=== PATIENT | female | born 1980 | race Caucasian/White ===

== ENCOUNTER → 2023-08-23 19:00 | Outpatient (REF) | payer OTHER, SELFPAY | LOC: MRI 3T 19:00 | PROVIDERS: ATTENDING PHYSICIAN Nurse Practitioner Adult Health; FAMILY PHYSICIAN Emergency Medicine | DX: I77.3 Arterial fibromuscular dysplasia (principal) | CPT/HCPCS: 70544; 70549; A9585 ==

== ENCOUNTER → 2023-09-11 07:08 | Outpatient (REF) | payer OTHER, SELFPAY | LOC: HWRAD 07:08 | PROVIDERS: ATTENDING PHYSICIAN Emergency Medicine | DX: E04.1 Nontoxic single thyroid nodule (principal) | CPT/HCPCS: 76536 ==

== ENCOUNTER → 2023-09-13 07:14 | Outpatient (REF) | payer OTHER, SELFPAY | LOC: DHCBC HW 07:14 | PROVIDERS: ATTENDING PHYSICIAN Internal Medicine Cardiovascular Disease; FAMILY PHYSICIAN Emergency Medicine | DX: R06.00 Dyspnea, unspecified (principal) | CPT/HCPCS: 93306 ==

== ENCOUNTER → 2023-09-26 10:01 | Outpatient (REF) | payer OTHER, SELFPAY | LOC: WDC 10:01 | PROVIDERS: ATTENDING PHYSICIAN Emergency Medicine | DX: N63.32 Unspecified lump in axillary tail of the left breast (principal); R22.32 Localized swelling, mass and lump, left upper limb | CPT/HCPCS: 76642; 77062; 77066 ==

== ENCOUNTER → 2023-10-18 09:12 | Outpatient (REF) | payer OTHER, SELFPAY ==
[2023-10-18 09:48] VITALS: BP 125/79; BP_SYST 68
== END ==
LOC: RADI 09:12
PROVIDERS: ATTENDING PHYSICIAN Emergency Medicine
DX: E04.1 Nontoxic single thyroid nodule (principal)
CPT/HCPCS: 88173; 10005

== ENCOUNTER 2024-05-06 06:09 | Day surgery (SDC) | payer OTHER, SELFPAY ==
[2024-05-06 06:10] VITALS: BMI 25.1
[2024-05-06 06:15] VITALS: BP 108/67
[2024-05-06 06:25] VITALS: BMI 25.1
[2024-05-06] MEDS: TYLENOL 1000 MG PO (06:35)
[2024-05-06] MEDS: NORMOSOL-R/PLASMALYTE-A 1000 IV (06:36)
--- NOTE | 2024-05-06 08:05 | W.IMMPOSTOP ---
Surgical Immed Post Op Note
-
Primary Surgeon: Desi
Assisting: Eusebia PERSON
Pre-op Diagnosis: Soft tissue mass, left axilla
Post-op Diagnosis: Same
Procedure Performed: Excision of soft tissue mass of left axilla
Anesthesia Type: MAC local
Specimen / Cultures: Soft tissue mass, left axilla
Estimated Blood Loss: 5cc
Complications: None immediate
Operative Findings: 3.5x2cm fatty mass with some fibrous septae and some skin attachments
--- NOTE | 2024-05-06 08:06 | OR.RPT ---
Operative Report
Operative Report
Primary Surgeon: Desi
Assisting: Eusebia PERSON
Pre-op Diagnosis: Soft tissue mass, left axilla
Post-op Diagnosis: Same
Procedure Performed: Excision of soft tissue mass of left axilla
Anesthesia Type: MAC local
Specimen / Cultures: Soft tissue mass, left axilla
Estimated Blood Loss: 5cc
Complications: None immediate
Operative Findings: 3.5 x 2cm fatty mass with some fibrous septae and some skin attachments
Date of surgery: 05/06/24
Procedure: After informed consent was obtained, the patient was marked in the preop area while awake and then brought to the operating room. The pt was placed in the supine position and was given IV sedation by the Anesthesia team. The marked area
was infiltrated with 1% lidocaine with epinephrine. An incision was made with a #15 blade and carried down to the subcutaneous plane with electrocautery. A soft rubbery fatty mass with some fibrous septae was identified. It was freed from
surrounding attachments with electrocautery and excised in 3 segments that were passed off the table as specimen. The wound was then irrigated with sterile saline and hemostasis was achieved using electrocautery. The wound was closed in layers with
3-0 vicryl deep dermal sutures and a running 4-0 monocryl subcuticular suture. Topical skin glue was applied. The patient tolerated the procedure well and was transferred to recovery room in stable condition.
[2024-05-06 08:18] VITALS: BP 102/68
[2024-05-06 08:30] VITALS: BP 102/61
[2024-05-06 08:45] VITALS: BP 102/64
[2024-05-06 08:59] VITALS: BP 108/69
== END 2024-05-06 09:05 | disposition home or self-care (01) ==
LOC: SDS 06:09
PROVIDERS: ATTENDING PHYSICIAN Surgery
DX: R22.2 Localized swelling, mass and lump, trunk (principal)
CPT/HCPCS: 21552; 88304; 88341; 88342

== ENCOUNTER → 2024-09-06 07:57 | Outpatient (REF) | payer OTHER, SELFPAY | LOC: RAD 07:57 | PROVIDERS: ATTENDING PHYSICIAN Surgery Vascular Surgery; FAMILY PHYSICIAN Emergency Medicine | DX: I77.3 Arterial fibromuscular dysplasia (principal) | CPT/HCPCS: 93975 ==

== ENCOUNTER → 2024-11-18 12:59 | Outpatient (REF) | payer OTHER, SELFPAY | LOC: HWRAD 12:59 | PROVIDERS: ATTENDING PHYSICIAN Internal Medicine Endocrinology, Diabetes & Metabolism; FAMILY PHYSICIAN Emergency Medicine | DX: E04.1 Nontoxic single thyroid nodule (principal) | CPT/HCPCS: 76536 ==

== ENCOUNTER 2024-12-03 10:34 | Emergency (ER) | payer OTHER, SELFPAY ==
[2024-12-03 10:59] VITALS: BP 127/86
[2024-12-03 11:32] LABS: % Basophils 0.8 % (0-2); % Eosinophils 1.1 % (0-6); % Immature Granulocytes 0.3 % (0-0.5); % Lymphocytes 31.4 % (20.5-51.1); % Monocytes 8.9 % (1.7-9.3); % Neutrophils 57.5 % (42.2-75.2); Absolute Basophils 0.1 10^3/uL (0-0.2); Absolute Eosinophils 0.1 10^3/uL (0-0.7); Absolute Monocytes 0.6 10^3/uL (0.1-0.6); Absolute Neutrophils 3.6 10^3/uL (1.4-6.5); Hematocrit 25.2 % (37.0-47.0); Hemoglobin 7.8 g/dL (12.0-16.0); Mean Corpuscular Hgb 23.8 pg (27.0-31.0); Mean Corpuscular Volume 76.8 fL (81.0-99.0); Mean Platelet Volume 9.1 fL (7.4-10.4); Nucleated Red Blood Cells % 0 %; Platelet Count 461 10^3/uL (130-400); Red Blood Cell Count 3.28 10^6/uL (4.20-5.40); Red Cell Dist. Width 15.4 % (11.5-14.5); White Blood Cell Count 6.3 10^3/uL (4.8-10.8)
[2024-12-03 11:41] LABS: HCG, Serum Qualitative Screen Negative
[2024-12-03 11:46] LABS: ALT (SGPT) 16 U/L (0-35); AST (SGOT) 19 U/L (14-36); Albumin 4.1 g/dl (3.5-5.0); Alkaline Phosphatase 52 U/L (38-126); Blood Urea Nitrogen 10 mg/dl (7-17); Calcium 9.6 mg/dl (8.4-10.2); Carbon Dioxide 23 mmol/L (22-30); Chloride 112 mmol/L (98-107); Glucose 95 mg/dl (70-99); Potassium 4.7 mmol/L (3.5-5.1); Sodium 139 mmol/L (135-145); Total Bilirubin 0.4 mg/dl (0.2-1.3); Total Protein 6.6 g/dl (6.3-8.2); eGFR > 60.00
[2024-12-03 11:56] LABS: Troponin I < 0.012 ng/ml
--- NOTE | 2024-12-03 12:28 | ED.GENMED ---
History of Present Illness
General
Chief Complaint: Chest Pain
Source: patient
Exam Limitations: none
Time Seen by Provider: 12/03/24 11:32
Nursing documentation reviewed up to this point in time: agreed with
History of Present Illness
History of Present Illness:
Patient is a 44-year-old female with history of iron deficiency anemia presenting to the emergency department for evaluation of chest pain. Patient reports that tightness in her chest woke her from sleep this morning around 1 AM. Tightness has
been constant since. She denies any radiation into her back or clear exertional/pleuritic component. Patient does report recent shortness of breath and felt very lightheaded/dizzy when dropping her child off at school today. She also had some
tingling in her right fingers earlier this morning which has resolved.
Patient states that she is currently being worked up for iron deficiency anemia. She reports irregular and heavy vaginal bleeding over the past 6 months. She denies any abdominal pain hematochezia, or melena. No hematuria. Patient has been by
primary care and hematology. She was recently referred to GI and [facility]. She is an appointment [facility] tomorrow. Her most recent hemoglobin was 9.6 on 11/09.
Patient states her last menstrual period was 11/09 - 11/30.
Patient reports negative fecal occult blood testing a few weeks ago.
Past History
Past History
ED Past Medical History: GERD and Other (migraines, glaucoma)
ED Past Surgical History:
Social History
Tobacco: Non-smoker
Alcohol: None
Drug: None
Personal:
Living: with family
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
Family History
Family History: Sudden (Grandfather)
Review of Systems
Review of Systems
Allergies reviewed?: Yes
All Other Systems: ROS reviewed and negative except as documented in HPI and ROS
Phy Exam
Physical Exam
Physical Exam:
Vitals: Patient's vital signs are stable. Afebrile
General: Patient is well appearing, no acute distress. Nontoxic appearing
Skin: Warm and dry, no rashes or lesions
Head: Normocephalic, atraumatic
Eyes: Sclera nonicteric. EOMs intact. No nystagmus.
Throat: Protecting airway
Neck: Normal ROM, no cervical spine tenderness, no meningismus
Cardiac: Regular rate and rhythm, no murmurs. No reproducible chest wall tenderness.
Pulm: Normal respiratory effort, no wheezes, rales, rhonchi heard on exam
.
Abdomen: Abdomen soft nontender.
Rectal: Very minimal light brown stool in vault. Guaiac negative.
Extremities: No evidence of cyanosis or edema. Palpable DP pulses bilateral
Neuro: AAOx3. Grossly intact.
Psychiatric: Normal affect.
Scores
Heart Score for Chest Pain Patients
STEMI patient?: Not applicable
Course
Orders/Labs/Results
Orders:
Orders
12/03/24 10:35
Electrocardiogram (*1) Urgent
Reason for Study: Chest Pain
EKG- Treatment ONCE
12/03/24 11:04
Test Result ONCE
12/03/24 11:11
Type And Crossmatch [Type+Screen] Urgent
Complete Blood Count/With Diff Urgent
Comprehensive Metabolic Panel Urgent
HCG, Serum Qualitative Screen Urgent
Comment: Notify provider if positive test present
Troponin I Urgent
12/03/24 12:05
US Pelvis W Transvag Combined Urgent
Reason For Exam: Vaginal bleeding, anemia
12/03/24 12:55
D-Dimer Urgent
12/03/24 13:18
0.9% Sodium Chloride 1000 ml [Nss] 1,000 ml IV BOLUS
12/03/24 14:18
Electrocardiogram (*1) Urgent
Reason for Study: Chest Pain
EKG- Treatment ONCE
12/03/24 14:35
Troponin I Urgent
12/03/24 15:09
CR Chest - 2 Views Urgent
Comment:
Reason For Exam: CP, SOB
12/03/24 15:30
Blood Bank Products [* Blood Bank Products] Urgent
Blood Bank Products: *Packed RBC Leuko(PRBC's)
Quantity: 1
Transfuse Today: Yes
Reason: Anemia
Abnormal Lab Results
12/03/24
11:11
RBC 3.28 L 10^6/uL
(4.20-5.40)
Hgb 7.8 L g/dL
(12.0-16.0)
Hct 25.2 L %
(37.0-47.0)
MCV 76.8 L fL
(81.0-99.0)
MCH 23.8 L pg
(27.0-31.0)
MCHC 31.0 L g/dL
(33.0-37.0)
RDW 15.4 H %
(11.5-14.5)
Plt Count 461 H 10^3/uL
(130-400)
Chloride 112 H mmol/L
(98-107)
Crossmatch IS Only See Detail
12/03/24 11:11
12/03/24 11:11
Vital Signs
Initial and Last Documented VS:
Initial Vital Signs
Temp Pulse Resp BP Pulse Ox
98.3 F 72 16 127/86 100
12/03/24 10:59 12/03/24 10:59 12/03/24 10:59 12/03/24 10:59 12/03/24 10:59
Last Documented Vital Signs
Temp Pulse Resp BP Pulse Ox
98.0 F 69 16 103/64 99
12/03/24 19:11 12/03/24 19:11 12/03/24 19:11 12/03/24 19:11 12/03/24 19:11
MDM/Problems Addressed
Differential Diagnosis Includes:
Not limited to: Muscular strain, GERD, symptomatic anemia, pulmonary embolism, acute coronary syndrome, etc.
MDM/Problems Addressed:
44-year-old female with recent history iron deficiency anemia presenting with recent worsening exertional dyspnea, lightheadedness, now with new chest tightness this morning. Patient with abnormal and heavy periods for the past six months and
anemia. No current vaginal bleeding. She has followed with primary and hematology who referred her to [facility] Patient has appointment scheduled with [facility] tomorrow. Patient has stable vital signs on arrival. Physical exam as above. Labs sent off
in triage significant for an anemia with a hemoglobin of 7.8. Nn review of patient�s most recent outpatient lab work obtained in mid October � this is an approximately two point drop. Chemistry unremarkable. EKG without ischemic findings. Initial
troponin undetectable. Will send d-dimer, repeat troponin, chest x-ray. Given history of heavy periods and anemia � will obtain pelvic ultrasound.
Update: D-dimer negative. CXR w/o acute findings. Serial troponin undetectable x2. Low suspicion for acute cardiac process. The majority of patient symptoms, including exertion dyspnea and lightheadedness likely secondary to symptomatic anemia from
heavy menstrual bleeding. Rectal exam was performed with guaiac negative stool� not suspect G.I. bleeding. Pelvic ultrasound shows possible hemorrhagic cyst of right anexal region without other acute findings. Discussed with [facility], Dr. Andrews.
Patient remains hemodynamically stable without active vaginal bleeding today. Suspect acute on chronic anemia. Give patients presenting symptoms- will plan to transfuse one unit in ED and discharge with [facility] outpatient follow up. Blood consent
obtained from patient and signed into chart.
Update: Patient received one unit RBC in ED and tolerated well. She is hemodynamically stable. Will discharge home with outpatient [facility] f/u tomorrow. Close return precautions discussed.
Chronic conditions affecting care:
GERD, iron deficiency anemia
Acute Exacerbation and/or Progression of Chronic Illness:
Acute on chronic iron deficiency anemia
*Radiology
Radiology exam reviewed: preliminary read by ED provider (CXR reviewed by me - no acute abnormalities) and radiology read reviewed
*Pulse Oximetry
Patient hypoxic: no
*EKG
Interpreted by ED Provider?: Yes
EKG Intrepretation Date: 12/03/24
Interpretation: normal
Comparison EKG: no changes
Heart Rate: 67
Rate: normal
Rhythm: sinus
[place]: normal axis
Interval: normal QT interval
QRS Pattern: normal QRS
Ischemia: no ischemia
*White Metal Caster Interpretation
Rate: White Metal Caster- N/A
*Critical Care Note
Total Time (30-74mins, 75-104mins- exclusive of procedures): Not Applicable
Data Reviewed
Review of Other/Old Records Reveals: Labs (Outpatient lab work from 11/09/24 with hgb of 9.6)
Source: other (outpatient labwork)
Patient Management
Discussion with other providers: Dry Talc Racker (Case discussed with [facility])
ED Attending Note
-
Portions of this chart may have been created with voice recognition software.� Occasional wrong word or��sound alike� substitutions may have occurred due to the inherent limitations of voice recognition software.
Discharge Plan
Departure
Patient Disposition: Home (Routine Discharge)
Date of Disposition: 12/03/24
Time of Disposition: 19:24
Patient with high blood pressure during this ER visit?: Yes
Condition: Good
Covid-19: Not Applicable
Discharge Problem:
Anemia, Dyspnea, Chest pain
Instructions: Blood transfusion, Low iron in adults - Discharge instructions, Chest pain - Discharge instructions
Prescriptions:
No Action
multivitamin [Bgz-Fqilfh-Yyryi] 1 EACH tablet
1 ea PO DAILY
aspirin 81 mg Capsule
81 mg PO DAILY
Qulipta 10 mg Tablet
10 mg PO DAILY
Referrals:
Gretchen bOregon MD [Family Provider] - Follow up in 5-7 days
Manuel Andrews MD [Active] - Tomorrow
Activity Restrictions/Additional Instructions:
RETURN TO THE EMERGENCY DEPARTMENT ANY FEVER, CHILLS, RASH, CHEST PAIN OR SHORTNESS OF BREATH, LIGHTHEADEDNESS/DIZZINESS, PERSISTENT OR HEAVY VAGINAL BLEEDING, OR ANY OTHER CONCERNS
- As discussed�your hemoglobin was found to be 7.8 today. You did receive 1 unit of blood in the emergency department. I suspect some of your symptoms are likely due to symptomatic anemia. It is importantly follow-up tomorrow with [facility] for
further evaluation/management.
- You should schedule your iron infusion as directed by your video recorder mechanic.
- Stay well-hydrated. Get plenty of rest.
Monitor your symptoms closely and return to the emergency department with any acute worsening/new symptoms or any other concerns
Interventions
Interventions:
*Risk Screen - Suicide Last Done: 12/03/24 10:59
*General Assessment Last Done: 12/03/24 13:31
*Neglect/Abuse Screening Last Done: 12/03/24 10:59
*ED- Fall Risk Assessment Last Done: 12/03/24 13:31
*ED COVID-19 Vaccine History Last Done: 12/03/24 13:31
*Nursing Disposition Last Done: 12/03/24 19:41
ED- Cardiac Assessment Last Done: 12/03/24 13:28
Discharge Date and Time
Discharge Date/Time: 12/03/24 19:41
Print Language: CITIZEN OF [place]
[2024-12-03] MEDS: NSS 1000 IV (13:27)
[2024-12-03 13:28] VITALS: BP 126/74
[2024-12-03 14:10] LABS: D-Dimer < 0.27 ug/mlFEU (0.00-0.50)
[2024-12-03 14:32] VITALS: BP 110/70
[2024-12-03 15:12] LABS: Troponin I < 0.012 ng/ml
[2024-12-03 16:49] VITALS: BP 111/69
[2024-12-03 17:13] VITALS: BP 101/64
[2024-12-03 19:11] VITALS: BP 103/64
== END 2024-12-03 19:41 | disposition home or self-care (01) ==
LOC: EMR 10:34
PROVIDERS: Physician Assistant; Student in an Organized Health Care Education/Training Program; EMERGENCY PHYSICIAN Student in an Organized Health Care Education/Training Program; FAMILY PHYSICIAN Emergency Medicine
DX: D50.9 Iron deficiency anemia, unspecified (principal); R07.89 Other chest pain; R06.09 Other forms of dyspnea; K21.9 Gastro-esophageal reflux disease without esophagitis
CPT/HCPCS: 99284; 71046; 76830; 76856; 80053; 84484; 84703; 85025; 85379; 86850; 86900; 86901; 86920; 93005; P9016

== ENCOUNTER → 2024-12-11 14:53 | Outpatient (REF) | payer OTHER, SELFPAY ==
[2024-12-11 14:01] LABS: % Basophils 1.2 % (0-2); % Eosinophils 1.7 % (0-6); % Immature Granulocytes 0.2 % (0-0.5); % Lymphocytes 33.2 % (20.5-51.1); % Monocytes 9.1 % (1.7-9.3); % Neutrophils 54.6 % (42.2-75.2); Absolute Basophils 0.1 10^3/uL (0-0.2); Absolute Eosinophils 0.1 10^3/uL (0-0.7); Absolute Lymphocytes 2.2 10^3/uL (1.2-3.4); Absolute Monocytes 0.6 10^3/uL (0.1-0.6); Absolute Neutrophils 3.6 10^3/uL (1.4-6.5); Hematocrit 28.6 % (37.0-47.0); Hemoglobin 8.9 g/dL (12.0-16.0); Mean Corp Hgb Conc. 31.1 g/dL (33.0-37.0); Mean Corpuscular Hgb 25.1 pg (27.0-31.0); Mean Corpuscular Volume 80.8 fL (81.0-99.0); Platelet Count 407 10^3/uL (130-400); Red Blood Cell Count 3.54 10^6/uL (4.20-5.40); Red Cell Dist. Width 18.2 % (11.5-14.5); White Blood Cell Count 6.6 10^3/uL (4.8-10.8)
== END ==
LOC: OIDL 14:53
PROVIDERS: ATTENDING PHYSICIAN Internal Medicine Hematology & Oncology
DX: D50.9 Iron deficiency anemia, unspecified (principal)
CPT/HCPCS: 85025

== ENCOUNTER 2024-12-27 06:18 | Day surgery (SDC) | payer OTHER, SELFPAY ==
[2024-12-24 13:56] LABS: % Basophils 0.9 % (0-2); % Eosinophils 0.8 % (0-6); % Immature Granulocytes 0.3 % (0-0.5); % Lymphocytes 27.2 % (20.5-51.1); % Monocytes 6.1 % (1.7-9.3); % Neutrophils 64.7 % (42.2-75.2); Absolute Basophils 0.1 10^3/uL (0-0.2); Absolute Eosinophils 0.1 10^3/uL (0-0.7); Absolute Lymphocytes 2.1 10^3/uL (1.2-3.4); Absolute Monocytes 0.5 10^3/uL (0.1-0.6); Absolute Neutrophils 4.9 10^3/uL (1.4-6.5); Hematocrit 29.6 % (37.0-47.0); Hemoglobin 9.2 g/dL (12.0-16.0); Mean Corp Hgb Conc. 31.1 g/dL (33.0-37.0); Mean Platelet Volume 9.2 fL (7.4-10.4); Nucleated Red Blood Cells % 0 %; Platelet Count 481 10^3/uL (130-400); Red Blood Cell Count 3.29 10^6/uL (4.20-5.40); Red Cell Dist. Width 22.6 % (11.5-14.5); White Blood Cell Count 7.5 10^3/uL (4.8-10.8)
[2024-12-24 14:13] VITALS: BMI 20.8
[2024-12-24 14:37] LABS: Beta HCG Quantitative < 2.39 mIU/ml
[2024-12-24 14:44] LABS: Blood Urea Nitrogen 6 mg/dl (7-17); Calcium 9.2 mg/dl (8.4-10.2); Carbon Dioxide 22 mmol/L (22-30); Chloride 111 mmol/L (98-107); Estimated Creatinine Clearance 69 ml/min; Glucose 84 mg/dl (70-99); Potassium 4.3 mmol/L (3.5-5.1); Sodium 138 mmol/L (135-145); eGFR > 60.00
[2024-12-27] VITALS (9 sets, daily range): BP systolic 93–117; BP diastolic 50–68; BMI 20.8
[2024-12-27] MEDS: NEURONTIN 300 MG PO (07:56)
[2024-12-27] MEDS: TYLENOL 1000 MG PO (07:56)
[2024-12-27] MEDS: NORMOSOL-R/PLASMALYTE-A 1000 IV (07:57)
== END 2024-12-27 11:26 | disposition home or self-care (01) ==
LOC: SDS 06:18
PROVIDERS: ATTENDING PHYSICIAN Obstetrics & Gynecology; FAMILY PHYSICIAN Emergency Medicine
DX: N92.0 Excessive and frequent menstruation with regular cycle (principal); N84.0 Polyp of corpus uteri
CPT/HCPCS: 58558; 88305; 36415; 80048; 84702; 85025

== ENCOUNTER → 2025-01-21 12:25 | Outpatient (REF) | payer OTHER, SELFPAY | LOC: WDC 12:25 | PROVIDERS: ATTENDING PHYSICIAN Emergency Medicine | DX: Z12.31 Encounter for screening mammogram for malignant neoplasm of breast (principal) | CPT/HCPCS: 77063; 77067 ==

== ENCOUNTER 2025-01-30 06:27 | Day surgery (SDC) | payer OTHER, SELFPAY | END 2025-01-30 14:36 | disposition home or self-care (01) | LOC: GI 06:27 | PROVIDERS: ATTENDING PHYSICIAN Internal Medicine Gastroenterology | DX: D50.9 Iron deficiency anemia, unspecified (principal); K44.9 Diaphragmatic hernia without obstruction or gangrene; K31.89 Other diseases of stomach and duodenum | CPT/HCPCS: 43239; 88305; 88342 ==

== ENCOUNTER → 2025-03-07 15:00 | Outpatient (REF) | payer OTHER, SELFPAY | LOC: RAD 15:00 | PROVIDERS: ATTENDING PHYSICIAN Nurse Practitioner Family; FAMILY PHYSICIAN Emergency Medicine | DX: N83.291 Other ovarian cyst, right side (principal) | CPT/HCPCS: 76830; 76856 ==

== ENCOUNTER → 2025-05-07 18:47 | Outpatient (REF) | payer OTHER, SELFPAY | LOC: MRI 18:47 | PROVIDERS: ATTENDING PHYSICIAN Obstetrics & Gynecology; FAMILY PHYSICIAN Emergency Medicine | DX: R93.89 Abnormal findings on diagnostic imaging of other specified body structures (principal) | CPT/HCPCS: 72197; A9575 ==

== ENCOUNTER 2025-06-17 05:45 | Day surgery (SDC) | payer OTHER, SELFPAY ==
[2025-05-27 09:08] LABS: Hematocrit 41.6 % (37.0-47.0); Hemoglobin 13.9 g/dL (12.0-16.0); Mean Corp Hgb Conc. 33.4 g/dL (33.0-37.0); Mean Corpuscular Volume 92.9 fL (81.0-99.0); Nucleated Red Blood Cells % 0 %; Platelet Count 316 10^3/uL (130-400); Red Cell Dist. Width 13.1 % (11.5-14.5)
[2025-05-27 09:45] LABS: Blood Urea Nitrogen 13 mg/dl (7-17); Calcium 9.2 mg/dl (8.4-10.2); Carbon Dioxide 23 mmol/L (22-30); Chloride 107 mmol/L (98-107); Glucose 75 mg/dl (70-99); Potassium 4.6 mmol/L (3.5-5.1); Sodium 135 mmol/L (135-145); eGFR > 60.00
[2025-05-27 09:51] LABS: Beta HCG Quantitative < 2.39 mIU/ml
[2025-05-27 13:54] VITALS: BMI 21.2
[2025-06-17] VITALS (12 sets, daily range): BP systolic 104–123; BP diastolic 66–75; BMI 21.2
[2025-06-17] MEDS: NEURONTIN 300 MG PO (06:22)
[2025-06-17] MEDS: TYLENOL 1000 MG PO (06:23)
[2025-06-17] MEDS: EMEND 40 MG PO (06:48)
[2025-06-17] MEDS: NORMOSOL-R/PLASMALYTE-A 1000 IV (06:49)
--- NOTE | 2025-06-17 10:04 | W.IMMPOSTOP ---
Addendum entered and electronically signed by Tereza Butler DO 06/17/25 10:58:
ASST: NAYA Abreu
add to procedure: pelvic washings
specimen: pelvic washings
Original Note:
Surgical Immed Post Op Note
-
Primary Surgeon: Tereza Butler DO
Assisting Surgeon: same
Pre-op Diagnosis: Menorrhagia, irregular bleeding;recurrent right ovarian cyst
Post-op Diagnosis: same
Procedure Performed: Robotic assisted total laparoscopic hysterectomy bilateral salpingo-oopherectomy, lysis adhesions
Anesthesia Type: general ET Dr. Blake
Specimen / Cultures: uterus, cervix, bilateral fallopian tubes and ovaries
Estimated Blood Loss: 10ml
Urine output: 75 ml clear yellow
Complications: none
Operative Findings: Uterus approx 10 cm size, globular shaped, normal appearing tubes and ovaries. Right ovary with superficial clear vesicles on surface.
Right fallopian tube adhesions. No ovarian cysts. Adhesions in region of lower uterine segment/bladder.
Counts correct times 2.
Stable to recovery.
[2025-06-17] MEDS: DILAUDID 0.25 MG IV (10:53)
[2025-06-17] MEDS: ERYTHROMYCIN 0.5% OPHTHALMIC OINTMENT 1 APPLIC OPHTH (12:42)
[2025-06-17] MEDS: TYLENOL 650 MG PO (12:47)
== END 2025-06-17 15:10 | disposition home or self-care (01) ==
LOC: SDS 05:45
PROVIDERS: ATTENDING PHYSICIAN Obstetrics & Gynecology; FAMILY PHYSICIAN Nurse Practitioner Family
DX: N92.0 Excessive and frequent menstruation with regular cycle (principal); N93.9 Abnormal uterine and vaginal bleeding, unspecified; N83.12 Corpus luteum cyst of left ovary; N83.291 Other ovarian cyst, right side; N85.8 Other specified noninflammatory disorders of uterus
CPT/HCPCS: 58571; 80048; 84702; 85025; 86850; 86900; 86901; 88112; 88307

== ENCOUNTER 2025-06-18 19:01 | Emergency (ER) | payer OTHER, SELFPAY ==
[2025-06-18 19:15] VITALS: BP 130/85
[2025-06-18 19:23] VITALS: BP 130/73
[2025-06-18 19:38] VITALS: BMI 23.4
--- NOTE | 2025-06-18 19:54 | ED.GENMED ---
History of Present Illness
General
Chief Complaint: Post Operative Problem(s)
Source: patient and spouse
Time Seen by Provider: 06/18/25 19:39
History of Present Illness
History of Present Illness:
45-year-old female presents emergency room complaining of having some chest discomfort some shortness of breath and trouble swallowing that began early this afternoon. Patient had a hysterectomy formed yesterday but Dr. Butler. This was a robotic
assisted laparoscopic procedure. Patient felt well after the procedure and was discharged home. She felt as expected this morning with postoperative pain but none of the symptoms that are brought here to the emergency room. She had no difficulty
swallowing. She had no unusual sore throat or change of voice.
Past History
Past History
ED Past Medical History: GERD and Other (migraines, glaucoma)
ED Past Surgical History:
Social History
Tobacco: Non-smoker
Alcohol: None
Drug: None
Personal:
Living: with family
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
Family History
Family History: Sudden (Grandfather)
Phy Exam
Physical Exam
Physical Exam:
General: Awake, Alert, Oriented X3. No acute distress.
Vitals: unremarkable
Head: Atraumatic
Eyes: Pupils equal, EOMI
Throat: Airway intact, no exudates
Neck: Trachea midline, subcutaneous emphysema palpable bilaterally
Chest wall: Subcutaneous emphysema noted bilateral chest wall
Lungs: Crackles noted, breath sounds equal b/l
Heart: Regular rate, no murmurs
Neuro: Nonfocal
Skin: Warm, dry, no rash
Extremities: pulses equal b/l, no edema
Course
Orders/Labs/Results
Orders:
Orders
06/18/25 19:20
EKG [Electrocardiogram (*1)] Urgent
Reason for Study: Chest Pain
EKG- Treatment ONCE
06/18/25 19:37
CR Chest Portable - 1 View Urgent
Comment:
Reason For Exam: breathing problem
Reason Study Needs to be Portable: Unable to Transport
06/18/25 22:15
CR Chest - 2 Views Urgent
Comment:
Reason For Exam: sob, subcutaneous emphysema
Vital Signs
Initial and Last Documented VS:
Initial Vital Signs
Temp Pulse Resp BP Pulse Ox
99.1 F 111 22 130/85 98
06/18/25 19:15 06/18/25 19:15 06/18/25 19:15 06/18/25 19:15 06/18/25 19:15
Last Documented Vital Signs
Temp Pulse Resp BP Pulse Ox
99.1 F 63 14 103/66 98
06/18/25 19:15 06/18/25 22:15 06/18/25 22:15 06/18/25 23:17 06/18/25 23:45
MDM/Problems Addressed
Differential Diagnosis Includes:
Subcutaneous emphysema from pneumothorax, subcutaneous emphysema from abdominal insufflation, tracheal injury
MDM/Problems Addressed:
Patient presents with subcutaneous emphysema and neck face and chest. No pneumo on chest x-ray. Patient did not have any neck pain or hoarseness immediately following surgery. Given tracheal injury or other airway issue very unlikely to be the
source. Discussed with anesthesia and Dr. Butler. They agreed that this is very likely subcutaneous emphysema from insufflation for her laparoscopic procedure. This is a not uncommon. Patient observed for 3 hours. Repeat chest x-ray obtained
without any development of a pneumothorax. We ambulated patient and she did not have any shortness of breath. Through shared decision making we decided on discharge. Patient encouraged to return if she feels like things are getting worse or she
is not comfortable.
*Radiology
Radiology exam reviewed: radiology read reviewed
*Pulse Oximetry
SaO2: 98
Oxygen Mode of Delivery: Room air
Patient hypoxic: no
*EKG
Heart Rate: 91
Rate: normal
Rhythm: sinus
[place]: normal axis
Interval: normal interval
QRS Pattern: normal QRS
Ischemia: no ischemia
*Revenue Stamp Cutter Interpretation
Rate: normal
Interpretation: normal
Heart Rate: 91
Rhythm: sinus
*Critical Care Note
Total Time (30-74mins, 75-104mins- exclusive of procedures): Not Applicable
ED Attending Note
-
Portions of this chart may have been created with voice recognition software.� Occasional wrong word or��sound alike� substitutions may have occurred due to the inherent limitations of voice recognition software.
Discharge Plan
Departure
Patient Disposition: Home (Routine Discharge)
Date of Disposition: 06/18/25
Time of Disposition: 23:47
Patient with high blood pressure during this ER visit?: No
Condition: Good
Discharge Problem:
Emphysema (subcutaneous) (surgical) resulting from a procedure
Instructions: Postoperative Pain (DC)
Prescriptions:
No Action
aspirin 81 mg Capsule
81 mg PO DAILY
bupropion HCl [Wellbutrin XL] 150 mg Tablet Extended Release 24 Hr
150 mg PO DAILY
Qulipta 60 mg Tablet
60 mg PO DAILY
prochlorperazine
10 mg PO BID PRN (Reason: migraine)
acetaminophen [Tylenol] 325 mg Tablet
650 mg PO Q4H PRN (Reason: pain)
omeprazole 40 mg Capsule,Delayed Release(Dr/Ec)
40 mg PO DAILY
Women's Multivitamin
1 dose PO DAILY
oxycodone 5 mg tablet
5 mg PO .q4-6h PRN (Reason: severe pain) Qty: 12 0RF
erythromycin 5 mg/gram (0.5 %) Ointment
0.5 inch OPHTHALMIC (EYE) QID 5 Days Qty: 1 0RF
Rx Instructions:
2 drops in effected eye QID for 5 days.
Referrals:
Josette Nichols CRNP [Family Provider, Family Practice]
Activity Restrictions/Additional Instructions:
The swelling you are experiencing in your face neck and chest is related to air in the subcutaneous space. I believe this is related to the air used during your gynecologic surgery yesterday. This should resorb over time. Return to the emergency
room if you feel like you are becoming short of breath or you feel like your symptoms are worsening.
Interventions
Interventions:
*Risk Screen - Suicide Last Done: 06/18/25 19:15
*General Assessment Last Done: 06/18/25 19:15
*Neglect/Abuse Screening Last Done: 06/19/25 00:20
*ED- Fall Risk Assessment Last Done: 06/19/25 00:20
*ED COVID-19 Vaccine History Last Done: 06/19/25 00:20
*ED Influenza Vaccine History Last Done: 06/19/25 00:20
*Nursing Disposition Last Done: 06/19/25 00:20
ED-Skin Assessment Last Done: 06/18/25 19:54
Discharge Date and Time
Discharge Date/Time: 06/19/25 00:22
Print Language: FIJIAN
[2025-06-18 20:00] VITALS: BP 111/74
[2025-06-18 21:00] VITALS: BP 102/66
--- NOTE | 2025-06-18 21:00 | EDRN ---
Patient ambulated to the restroom and back in bed resting comfortably, VSS
[2025-06-18 22:00] VITALS: BP 105/68
--- NOTE | 2025-06-18 23:16 | EDRN ---
Patient was able to ambulate without any shortness of breath, reports slight dizziness however has been dizzy for few days, Dr. martinez aware
[2025-06-18 23:17] VITALS: BP 103/66
== END 2025-06-19 00:22 | disposition home or self-care (01) ==
LOC: EMR 19:01
PROVIDERS: EMERGENCY PHYSICIAN Emergency Medicine; FAMILY PHYSICIAN Nurse Practitioner Family
DX: T81.82XA Emphysema (subcutaneous) resulting from a procedure, initial encounter (principal); Y83.8 Other surgical procedures as the cause of abnormal reaction of the patient, or of later complication, without mention of misadventure at the time of the procedure; H40.9 Unspecified glaucoma
CPT/HCPCS: 99284; 71045; 71046; 93005